=== PATIENT | male | born 1945 | race Caucasian/White ===

== ENCOUNTER 2016-10-10 06:59 | Outpatient (CLI) | payer MEDICARE, BC ==
[~2016-10-10] VITALS: Ht 180.3 cm; Wt 85.6 kg
--- NOTE | ~2016-10-10 | CATH ---
Cardiac Diagnostic Report Demographics Patient Name SULEMA Butts Gender Male Date of 1945 Age 71 year(s) Patient Number [id number] Date of Study 10/10/2016 Visit Number [id number] Room Number G6399 [place] [id number] Ht 180.34 cm Wt 85.6 kg Referring [facility] Primary Physician Physician Padmini CHINCHILLA Performing [facility] Secondary Physician Physician Padmini CHINCHILLA Diagnostic [facility] Assisting Physician Physician Padmini CHINCHILLA Interventional Physician Materials Planning Analyst Physician Findings and Conclusions Diagnostic Findings and Conclusion 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 LVEDP 11 mmHg, no gradient across AV. Three of three grafts patent - VELEZ to LAD, SVG to OM, SVG to RCA. Diagnostic Recommendations Continue regular medications. Hydration and followup creatinine. Patient has been instructed to not lift anything more than 5 pounds for 1 week. Aggressive risk factor management. Aggressive medical therapy for coronary artery disease. Optimization of medical therapy as an outpatient. Cardiac diet . Procedure Description The patient was brought to the diagnostic cardiac catheterization-EP laboratory in the fasting, non-sedated state. Informed consent was obtained in the written and verbal form after the risks and benefits were explained. The patient had no further questions and agreed to proceed. The planned puncture-incision site(s) were shaved and prepped with ChloraPrep and draped in the usual sterile manner. Conscious sedation, supplemental oxygen, and pain control medications were delivered by a registered nurse under physician guidance. Surface ECG rhythm, blood pressure measurement, and pulse oximetry were monitored throughout the procedure. Arterial access. The access site was infiltrated with lidocaine. The vessel was entered with the Seldinger technique. A sheath was advanced into the vessel and used for catheter placement. Selective left coronary angiography. A catheter was advanced into the left coronary vessel ostium under Fluoroscopic guidance. Contrast was injected by hand. Images were obtained in multiple projections. Selective right coronary angiography. A catheter was advanced into the right coronary vessel ostium under fluoroscopic guidance. Contrast was injected by hand. Images were obtained in multiple projections. Selective VELEZ graft angiography. A catheter was advanced into the left internal mammary graft ostium under fluoroscopic guidance. Contrast was injected by hand. Images were obtained in multiple projections. Selective SVG angiography. A catheter was advanced into the graft proximal anastomosis under fluoroscopic guidance. Contrast was injected by hand. Images were obtained in multiple projections. Left heart catheterization. A catheter was advanced across the aortic valve to the left ventricle under fluoroscopic guidance. Resting hemodynamics were obtained. Arterial artery hemostasis. Hemostasis was achieved. The patient was transferred to a regular nursing floor via cart accompanied by a nurse. The patient left the laboratory in stable condition. Diagnostic Cath Status: Elective Procedure Procedure Type Indications: Angina and Positive nuclear perfusion study. The procedure was explained in detail to the patient. Risks, complications and alternative treatments were reviewed. Written consent was obtained. Medications Reviewed with Patient prior to Procedure. Angiographic Findings Dominance: Right Cardiac Arteries and Lesion Findings LMCA: Lesion on LMCA: Mid subsection.95% stenosis . LAD: Lesion on Mid LAD: 100% stenosis . LCx: Lesion on Prox CX: 100% stenosis . RCA: There is a previous stent on Prox RCA Proximal subsection. There is a previous stent on Mid RCA Mid subsection. Lesion on Prox RCA: 80% stenosis . The lesion was previously treated with the following techniques: stent unknown type. This is in-stentrestenosis. Lesion on Mid RCA: 100% stenosis . Cardiac Grafts - There is a VELEZ graft that originates at the VELEZ and attaches to the Mid LAD (Patent.). - There is a Vein graft that originates at the Aorta Left and attaches to the 1st Ob Ophelia (Patent.). - There is a Vein graft that originates at the Aorta Right and attaches to the Mid RCA (Patent.). Coronary Tree Procedure Data Procedure Date Date: 10/10/2016Start: 12:48 PMEnd: 01:22 PM Entry Locations - Retrograde Percutaneous access was performed through the Right Femoral artery (Primary location). A 6 Fr sheath was inserted. Hemostasis was successfully obtained using Perclose ProGlide (Ro[place]). Closure Comments: Deployed by [employer] . Procedure Medications Order and Administration + + + +-------+ !Time !Medication !Dosage !Route ! + + + +-------+ !10/10/2016 12:41 PM !Versed !1 mg !I.V. ! + + + +-------+ !10/10/2016 12:41 PM !Fentanyl !50 mcg !I.V. ! + + + +-------+ !10/10/2016 12:51 PM !Versed !1 mg !I.V. ! + + + +-------+ !10/10/2016 12:59 PM !Oxygen !2 l/min !NC ! + + + +-------+ !10/10/2016 01:11 PM !Oxygen !2 !NC ! + + + +-------+ Devices Used - A5 Fr. BS JL 4 Diag. Catheterwas used for:Left coronary angiography. - A5 Fr. BS JR 4 Diag. Catheterwas used for:Right coronary angiography. Contrast Material - Isovue 32481 ml Fluoroscopy Time: Diagnostic: 5:12 minutes. Total: 5:12 minutes. Fluoroscopy Dose: Diagnostic: 634 mGy. Total: 634 mGy. Estimated Blood Loss: 10 ml. Medical History Allergies - No known allergies. Risk Factors The patient risk factors include:prior PCI;prior CABG;treated hypercholesterolemia, treated hypertension, last creatinine: 1.7 mg/dl, creatinine clearance: 46.86 ml/min, dyslipidemia and prior [place] . Admission Data Admission Date: 10/10/2016 Admission Time: 06:59 AM Admit Source: Other Insurance Payors: Medicare. Admission Medications + +------+------+ + + + + !Medication !Dosage!Times !Last !Last !Administered !Comments ! ! ! !Per !Delivery !Delivery ! ! ! ! ! !Day !Date !Time ! ! ! + +------+------+ + + + + !Aspirin ! ! ! ! !Yes ! ! !(any) ! ! ! ! ! ! ! + +------+------+ + + + + !Statin ! ! ! ! !Yes ! ! !(any) ! ! ! ! ! ! ! + +------+------+ + + + + !Non-Statin ! ! ! ! !Yes ! ! !(any) ! ! ! ! ! ! ! + +------+------+ + + + + !Beta ! ! ! ! !Yes ! ! !Shekhar ! ! ! ! ! ! ! !(any) ! ! ! ! ! ! ! + +------+------+ + + + + !ARB (any) ! ! ! ! !Yes ! ! + +------+------+ + + + + Clinical Evaluation Leading to Procedure - The patient's CAD presentation was assessed as: Unstable angina. - The patient's anginal syndrome during the past two weeks was assessed as: Class II according to the [place] [employer] Classification System (CCS). Anti-anginal medications were prescribed during the past two weeks. The medication is: Beta Blockers. Hemodynamics Condition: Rest O2 Consumption: Estimated: 224.59Heart Rate: 53 bpm Pressures (mmHg) +-----+ + !Site !Pressure ! +-----+ + !AO !171/75 (104) ! +-----+ + !LV !146/10 ,16 ! +-----+ + !LV !144/5 ,11 ! +-----+ + !AO !160/66 (106) ! +-----+ + !LV !159/0 ,6 ! +-----+ + !AO !154/64 (100) ! +-----+ + Valve Gradients and Areas + +---------+---------+---------+ +---------+ + !Valve !Peak !Mean !Area !Index !Flow !Source ! + +---------+---------+---------+ +---------+ + !Aortic !2 !0 ! ! ! ! ! + +---------+---------+---------+ +---------+ + !Aortic !2 !0 ! ! ! ! ! + +---------+---------+---------+ +---------+ + Shunts Oxygen Values O2 Capacity 161.84 O2 Consumption 224.59 Signatures dtt: PADMINI MELO dtd: 10/10/16 1248 Physician Self Edit
[~2016-10-10 06:59] MED LIST: ASPIRIN EC81 MG PO; CALCIUM CARBON600 MG PO; CARVEDILOL25 MG PO; COLACE100 MG PO; DAILY VALUE1 EACH PO; DIOVAN320 MG PO; EYE HEALTH ADU1 EACH PO; IRON65 PO; LEVOTHROID (S137 MCG PO; LIPITOR20 M1 PO; MELATONIN3 MG PO; TRICOR 145 MG145 MG PO
[2016-10-10 07:48] LABS: BASOPHIL # 0.1 K/uL (0.0-0.2); EOSINOPHIL # 0.3 K/uL (0.0-0.5); EOSINOPHIL % 5.1 %; HEMATOCRIT 36.2 % (37.0-53.0); HEMOGLOBIN 11.9 g/dL (11.0-16.0); IMMATURE GRANULOCYTE % 0.5 %; LYMPHOCYTE # 1.3 K/uL (0.8-4.0); LYMPHOCYTE % 22.1 %; MCH 32.4 pg (27.0-34.0); MCHC 32.9 gm/dL (32.0-36.5); MCV 98.6 fl (83.0-98.0); MONOCYTE # 0.5 K/uL (0.0-1.0); MONOCYTE % 8.1 %; MPV 10.8 fl (9.4-12.4); NEUTROPHIL # (ANC) 3.8 K/uL (1.4-9.0); NEUTROPHIL % 63.2 %; NRBC % 0 /100WBC (0-0.00); PLATELET COUNT 169 K/uL (150-450); WBC 5.9 K/uL (4.0-11.0)
[2016-10-10 07:49] LABS: RBC 3.67 M/uL (3.50-5.50)
[2016-10-10 07:56] LABS: INR - (THERAPEUTIC) 0.95 (0.92-1.07); PTT 25 SECONDS (25-32)
[2016-10-10 08:08] LABS: ALBUMIN 3.5 gm/dL (3.5-5.0); ANION GAP 12.7 (10.0-19.0); CALCIUM 8.3 mg/dL (8.5-10.5); CREATININE 1.7 mg/dL (0.6-1.3); POTASSIUM 4.7 mMol/L (3.7-5.1); TOTAL BILIRUBIN 0.3 mg/dL (0.0-1.5); TOTAL PROTEIN 6.8 g/dL (6.0-8.4)
--- NOTE | 2016-10-10 08:49 | NUR ---
PATIENT COMPLAINS OF CHEST PAIN ON AND OFF SINCE ADMISSION. PATIENT WILL THEN DENY THAT HE COMPLAINED OF CHEST PAIN. DR. FERRARO ORDERED SUBLINGUAL NITRO TO BE GIVEN. 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
[2016-10-10] MEDS ORDERED: NORVASC5 MG PO (13:34)
[2016-10-10] MEDS ORDERED: NITROSTAT0.4 MG SL (13:35)
== END 2016-10-10 15:48 | disposition disaster alternative care site (69) ==
LOC: GCAT 06:59 → GPCU 06:59 → GCAT 07:00
PROVIDERS: Internal Medicine Interventional Cardiology
DX: I20.9 Angina pectoris, unspecified (principal); R94.31 Abnormal electrocardiogram [ECG] [EKG]; R94.39 Abnormal result of other cardiovascular function study; R00.1 Bradycardia, unspecified
CPT/HCPCS: C1760; J1644; J2001; J2250; J3010; J7030